=== PATIENT | female | born 1940 | race Caucasian/White ===

== ENCOUNTER 2017-03-17 10:40 | Day surgery (SDC) | payer MEDICARE, OTHER ==
[~2017-03-17 10:40] MED LIST: DIPRIVAN VIAL ONE
[2017-03-17] MEDS ORDERED: TETRACAINE 0.5% OPHTH 1 DOSE AFFEYE ONE ×3 (11:00→14:07)
[2017-03-17] MEDS ORDERED: VIGAMOX 0.5% OPHTH 1 DOSE AFFEYE ONE ×5 (11:03→14:18)
[2017-03-17] MEDS ORDERED: PROLENSA OPHTH 1 DOSE AFFEYE ONE (11:15)
[2017-03-17] MEDS ORDERED: ALPHAGAN-P OPHTH 1 DOSE AFFEYE ONE (11:17)
[2017-03-17] MEDS ORDERED: AK-DILATE 2.5% OPHTH 1 DOSE OP ONE ×6 (11:19→11:29)
[2017-03-17] MEDS ORDERED: CYCLOGYL 1% OPHTH 1 DOSE OP ONE ×6 (11:19→11:29)
[2017-03-17] MEDS ORDERED: MYDRIACIL OPHTH 1 DOSE AFFEYE ONE ×6 (11:19→11:29)
[2017-03-17] MEDS ORDERED: NS 500 ML IV 500 ML IV ONE (11:25)
[2017-03-17] MEDS ORDERED: BETADINE OPHTH SOLN 5% EACHEYE ONE (13:58)
[2017-03-17] MEDS ORDERED: DUOVISC IO ONE (14:07)
[2017-03-17] MEDS ORDERED: ADRENALINE CHL INJ IJ ONE (14:07)
[2017-03-17] MEDS ORDERED: BSS OPHTH (PLAIN) 500 ML with VANCOMYCIN HCL 500 MG VIAL 25 MG, ADRENALINE CHL INJ 1 MG IR ONE ×3 (14:07)
[2017-03-17] MEDS ORDERED: XYLOCAINE-MPF 1% IJ ONE (14:07)
[2017-03-17 14:32] VITALS: BP 139/72
== END 2017-03-17 14:33 | disposition home or self-care (01) ==
LOC: SURG1 10:40
PROVIDERS: ATTEND Ophthalmology
PROC: 08RK3JZ Replacement of Left Lens with Synthetic Substitute, Percutaneous Approach (ICD-10-PCS; principal; 2017-03-17 20:15)
PROC: 08DK3ZZ Extraction of Left Lens, Percutaneous Approach (ICD-10-PCS; principal; 2017-03-17 20:15)
DX: H25.12 Age-related nuclear cataract, left eye (principal)
CPT/HCPCS: A4217; J0170; J3370; J3490

== ENCOUNTER 2017-03-31 07:10 | Day surgery (SDC) | payer MEDICARE ==
[2017-03-31] MEDS ORDERED: TETRACAINE 0.5% OPHTH 1 DOSE AFFEYE ONE ×2 (07:15→10:10)
[2017-03-31] MEDS ORDERED: VIGAMOX 0.5% OPHTH 1 DOSE AFFEYE ONE ×5 (07:20→10:37)
[2017-03-31] MEDS ORDERED: NS 500 ML IV 500 ML IV ONE (07:24)
[2017-03-31] MEDS ORDERED: PROLENSA OPHTH 1 DOSE AFFEYE ONE (07:31)
[2017-03-31] MEDS ORDERED: ALPHAGAN-P OPHTH 1 DOSE AFFEYE ONE (07:32)
[2017-03-31] MEDS ORDERED: AK-DILATE 2.5% OPHTH 1 DOSE OP ONE ×3 (07:33→07:36)
[2017-03-31] MEDS ORDERED: MYDRIACIL OPHTH 1 DOSE AFFEYE ONE ×3 (07:33→07:35)
[2017-03-31] MEDS ORDERED: CYCLOGYL 1% OPHTH 1 DOSE OP ONE ×3 (07:33→07:35)
[2017-03-31] MEDS ORDERED: BETADINE OPHTH SOLN 5% EACHEYE ONE (10:10)
[2017-03-31] MEDS ORDERED: ADRENALINE CHL INJ IJ ONE ×2 (10:15→10:27)
[2017-03-31] MEDS ORDERED: XYLOCAINE-MPF 1% IJ ONE ×2 (10:15→10:27)
[2017-03-31] MEDS ORDERED: DUOVISC IO ONE ×2 (10:16→10:27)
[2017-03-31] MEDS ORDERED: BSS OPHTH (PLAIN) 500 ML with VANCOMYCIN HCL 500 MG VIAL 25 MG, ADRENALINE CHL INJ 1 MG IR ONE ×6 (10:20)
[2017-03-31] MEDS ORDERED: DIPRIVAN VIAL ONE (10:30)
[2017-03-31 11:00] VITALS: BP 146/71
== END 2017-03-31 11:03 | disposition home or self-care (01) ==
LOC: SURG1 07:10
PROVIDERS: ATTEND Ophthalmology
PROC: 08DJ3ZZ Extraction of Right Lens, Percutaneous Approach (ICD-10-PCS; principal; 2017-03-31 10:00)
PROC: 08RJ3JZ Replacement of Right Lens with Synthetic Substitute, Percutaneous Approach (ICD-10-PCS; principal; 2017-03-31 10:00)
DX: H25.11 Age-related nuclear cataract, right eye (principal)
CPT/HCPCS: 99100; A4217; J0170; J3370; J3490